=== PATIENT | female | born 1945 | race Caucasian/White ===

== ENCOUNTER 2018-08-30 10:39 | Emergency (ER) | payer MEDICARE, SELFPAY ==
[~2018-08-30] VITALS: Ht 162.6 cm; Wt 54.4 kg
[~2018-08-30 10:39] MED LIST: Bentyl20 MG PO; Estradiol1 MG PO; LOSA50 PO; MIRALAX17 GM PO
== END 2018-08-30 13:36 | disposition home or self-care (01) ==
LOC: ER 10:39
DX: S02.652A Fracture of angle of left mandible, initial encounter for closed fracture (principal); S03.02XA Dislocation of jaw, left side, initial encounter; S01.81XA Laceration without foreign body of other part of head, initial encounter; W01.198A Fall on same level from slipping, tripping and stumbling with subsequent striking against other object, initial encounter; Z88.2 Allergy status to sulfonamides; Z88.8 Allergy status to other drugs, medicaments and biological substances; Z79.899 Other long term (current) drug therapy; I10 Essential (primary) hypertension
CPT/HCPCS: 12011; 70450; 70486; 99284-25; A9270

== ENCOUNTER → 2023-02-13 | Outpatient (CLI) | payer OTHER | END | disposition home or self-care (01) | LOC: LAB 15:10 → LAB SHORT 15:10 | DX: R60.0 Localized edema (principal) | CPT/HCPCS: 85379 ==

== ENCOUNTER 2024-04-06 04:58 | Day surgery (SDC) | payer OTHER ==
[2024-04-06] MEDS ORDERED: ZOLEDRONIC ACID/MANNITOL-WATER 100 ML IV SCH (06:00)
[2024-04-06 11:05] VITALS: BP 136/72
--- NOTE | 2024-04-06 12:30 | NUR ---
ZOLEDRONIC ACID COMPLETE AT 1141
== END 2024-04-06 11:47 | disposition home or self-care (01) ==
LOC: ATC 04:58
DX: M81.0 Age-related osteoporosis without current pathological fracture (principal); E55.9 Vitamin D deficiency, unspecified; I10 Essential (primary) hypertension; Z88.2 Allergy status to sulfonamides; Z88.8 Allergy status to other drugs, medicaments and biological substances
CPT/HCPCS: 96365; J3489

== ENCOUNTER → 2024-12-30 | Outpatient (CLI) | payer OTHER | LOC: LAB SHORT 15:43 → LAB 15:43 | DX: N39.0 Urinary tract infection, site not specified (principal) | CPT/HCPCS: 87077; 87086; 87186 ==